=== PATIENT | male | born 1960 | race Caucasian/White ===

== ENCOUNTER → 2016-09-08 | Day surgery (SDC) | payer OTHER ==
[~2016-09-08] MED LIST: AMLODIPINE BESY10 M1 PO; ASPIRIN EC81 M1 PO; CLARITIN10 M1 PO; CRESTOR5 M1 PO; FLONASE ALLERG9.9 ML NAS; NEXIUM40 M1 PO
--- NOTE | 2016-09-08 12:28 | Operative Report ---
Operative/Inv Procedure Report Surgery Date: 09/08/16 Name of Procedure: Right knee arthroscopy, partial medial meniscectomy Pre-Operative Diagnosis: Right knee medial meniscus tear Post-Operative Diagnosis: Right knee medial meniscus tear Estimated Blood Loss: scant Surgeon/Fire Hydrant Mechanic: JUNE ST MD Anesthesia: laryngeal mask airway, block Complications: None Condition: Stable to PACU Operative Indication: This is a 56-year-old male with long-standing right knee pain. MRI showed a medial meniscus tear. Risks and benefits of the procedure were discussed with the patient at length. Risks include but are not limited to nerve damage, muscle damage, infection, blood loss, blood clots, pulmonary embolus, and even . The patient agreed to the above risks and elected to proceed with surgery. Operative/Procedure Note Note: The patient was placed supine on the operating room table. A tourniquet was applied. The lower extremity prepped and draped in normal sterile fashion. A timeout was performed before the incision. The site marking was visualized before incision. After the leg was prepped and draped, an Esmarch was used to exsanguinate the extremity. The tourniquet was inflated. A standard inferolateral portal was established with an 11 blade. The camera was inserted. A medial portal was established with a spinal needle and an 11 blade. The diagnostic arthroscopy was then performed which showed the above findings. A straight biter was used to debride the posterior horn of the medial meniscus. The camera was switched to the medial portal and the biter was then brought into the lateral portal. Further debridement was performed at the junction of the body and posterior horn of the medial meniscus. The shaver was then used to further stabilize the posterior horn of the medial meniscus. The knee was copiously irrigated. The portal sites were closed with 3-0 nylon suture in a simple interrupted fashion. The knee was injected with 10 mL of 0.25% Marcaine with epinephrine. A dry sterile dressing was applied and the patient was transferred to PACU in stable condition. Findings: Complex tear of the body and junction of the body and posterior horn of the medial meniscus. Medial compartment articular cartilage with grade 1 chondral changes. ACL intact. PCL intact. Lateral compartment articular cartilage intact. Lateral meniscus intact. Medial facet of the patella with a small grade 3 chondral flap. Otherwise patellofemoral joint articular cartilage intact. No loose bodies noted.
== END ==
LOC: STS 02:11
DX: M23.221 Derangement of posterior horn of medial meniscus due to old tear or injury, right knee (principal); I10 Essential (primary) hypertension; K21.9 Gastro-esophageal reflux disease without esophagitis
CPT/HCPCS: J0131; J0690; J2250